=== PATIENT | female | born 1955 | race Caucasian/White ===

== ENCOUNTER → 2017-07-18 | Outpatient (CLI) | payer MEDICARE, MEDICAID ==
[~2017-07-18] MED LIST: ALBU8.5H2 IH; ASPI-266 PO; ATOR40TA70 PO; DCS100C PO; FLUT1DIS3 IH; HYDR-34 PO; IBP600T1 PO; LANS30CA PO; LEVO137T17 PO; MMT17NA NSEACH; MONT10TA21 PO; NF-ESOM40C PO; OLME1TAB3 PO; PIRO20CA2 PO; POTA10CA43 PO; [UNRECOGNIZED DRUG - CODE] PO
--- NOTE | 2017-07-18 15:32 | Diagnostic Imaging Report ---
PROCEDURE: MRI lumbar spine. TECHNIQUE: Multiplanar, multisequence MRI of the lumbar spine was performed without contrast. INDICATION: Back pain. History of previous back injury. COMPARISON: None. FINDINGS: For the purposes of this exam, last well-formed disc space is denoted the L5-S1 level. Evaluation static alignment demonstrates mild reverse S-shaped scoliotic deformity of the lower thoracic and lumbar spine. AP static alignment is maintained. There is no significant anterolisthesis or retrolisthesis. There is no evidence of jumped facets. Vertebral body heights are maintained. There is no evidence of acute fracture. Evaluation of marrow signal demonstrates Modic type I change of the adjacent endplates of the L2-L3 level on the right and at the L3-L4 and L4-L5 levels on the left. Otherwise, marrow signal is unremarkable. There is also multilevel intervertebral disc height loss, greatest at the L2-L3 through L4-L5 levels. Visualized portions of distal cord are unremarkable. Conus terminates at approximately the L1 level. No abnormal intrathecal filling defects are seen. Pre-and paravertebral soft tissue structures are unremarkable. Axial images demonstrate the following: L1-L2: There is no large disc bulge or focal protrusion. There is no significant spinal canal or neuroforaminal stenosis. L2-L3: There is posterior disc osteophyte complex formation, eccentric to the right. There is also bilateral ligament flavum laxity and facet arthropathy. As result, there is mild narrowing of the spinal canal and left neuroforamen. There is moderate narrowing on the right as well. L3-L4: There is slight posterior disc bulge and bilateral ligament flavum laxity and facet arthropathy. As a result, there is mild narrowing of spinal canal and bilateral neuroforamen. L4-L5: There is broad-based posterior disc bulge and bilateral ligament flavum laxity and facet arthropathy. As a result, there is minimal narrowing of spinal canal and bilateral neuroforamen. L5-S1: There is slight broad-based posterior disc bulge, eccentric to the right. There is also bilateral facet arthropathy. As a result, there is minimal narrowing of the right neuroforamen. Spinal canal and left neuroforamen are unremarkable. IMPRESSION: 1. Multilevel degenerative changes of the lumbar spine as described above. These changes appear greatest at L2-L3 level. 2. No acute fracture or dislocation of the lumbar spine. Dictated by: Dictated on workstation # [id number]
== END ==
LOC: RAD 13:54
PROVIDERS: ATTEND Nurse Practitioner Community Health
DX: M48.061 Spinal stenosis, lumbar region without neurogenic claudication (principal); M51.17 Intervertebral disc disorders with radiculopathy, lumbosacral region; M47.816 Spondylosis without myelopathy or radiculopathy, lumbar region; M46.87 Other specified inflammatory spondylopathies, lumbosacral region; M46.06 Spinal enthesopathy, lumbar region; Z87.828 Personal history of other (healed) physical injury and trauma
CPT/HCPCS: 72148

== ENCOUNTER → 2019-02-18 | Outpatient (CLI) | payer MEDICARE, MEDICAID ==
--- NOTE | 2019-02-18 12:56 | Diagnostic Imaging Report ---
PROCEDURE: CT neck soft tissue without contrast. TECHNIQUE: Multiple contiguous axial images were obtained through the neck without the use of intravenous contrast. Auto Exposure Controls were utilized during the CT exam to meet ALARA standards for radiation dose reduction. INDICATION: Palpable mass on right side of neck. COMPARISON: None. FINDINGS: There is a mass measuring 2.6 x 1.9 x 2.1 cm (LR x AP x SI) along the posterior margin of the right sternocleidomastoid muscle and involving the dermis in the mid neck, approximately at the level of C4 and C5. This mass appears to be fairly low in attenuation compared to adjacent muscular density and has mild adjacent fat stranding. No other mass is identified in the neck. No cervical lymphadenopathy. The pharyngeal and laryngeal soft tissues are symmetric bilaterally. The floor of the mouth, tongue base, and epiglottis are negative. The lung apices are clear. The visualized skull base, mastoids, and paranasal sinuses are negative. Normal alignment of the temporomandibular joints. Moderate spondylotic changes in the cervical spine are greatest at C5-C7. IMPRESSION: Indeterminate mass in the neck measuring up to 2.6 cm involving the dermis appears to be low in attenuation compared to the adjacent musculature. Primary diagnostic consideration would include an epidermoid cyst. Further investigation with ultrasound may be helpful to evaluate if this mass is in fact cystic. No lymphadenopathy or other mass is identified in the neck. Dictated by: Dictated on workstation # [id number]
== END ==
LOC: RAD 11:27
PROVIDERS: ATTEND Surgery
DX: L72.0 Epidermal cyst (principal); R22.1 Localized swelling, mass and lump, neck
CPT/HCPCS: 70490

== ENCOUNTER 2019-02-21 01:13 | Emergency (ER) | payer MEDICARE, MEDICAID ==
[~2019-02-21] VITALS: Ht 152.4 cm; Wt 109.1 kg
--- NOTE | 2019-02-21 01:46 | ED Integumentary General ---
General Chief Complaint: Skin/Wound Problems Stated Complaint: NECK ABSCESS Nursing Triage Note: pt with right lateral neck abscess, had ct 3 days ago, abscess opened tonight and started draining yellowish drainage Source: patient History of Present Illness Date Seen by Provider: Feb 21, 2019 Time Seen by Provider: 01:16 Initial Comments 63-year-old female presenting with complaints of drainage from right neck mass. She has been seen in the clinic as well as Dr. Madrid about this. She had a CT scan of her neck done 2 days ago and is to see the surgeon on Friday about it. Tonight she was sleeping and when she rolled over in bed she had a lot of drainage from the wound. She has had soreness and pain in that area as well. Because of the drainage her daughter suggests that she come into the emergency department to be evaluated. She hasn't been on Bactrim but it was too strong and made her have lightheadedness and dizziness. She had been taking some clindamycin prior to that and was tolerating it okay. She has not been on any antibiotics since seeing Dr. Madrid recently. She denies any fever or chills. She also has asthma and has been coughing more recently. Allergies and Home Medications Allergies Coded Allergies: Penicillins (Unverified Allergy, Unknown, RASH, 10/06/14) carbamazepine (Unverified Allergy, Unknown, RASH, 10/06/14) gabapentin (Unverified Allergy, Unknown, RASH, 10/06/14) tuberculin,purif.prot.deriv. (Unverified Allergy, Unknown, RASH, 10/06/14) Home Medications Albuterol 8.5 Gm Hfa.aer.ad, 1-2 PUFF IH RTQ4HR PRN for WHEEZING, (Reported) PRN WHEEZING Aspirin 81 Mg Tablet., 81 MG PO DAILY, (Reported) Atorvastatin Calcium 40 Mg Tablet, 40 MG PO DAILY, (Reported) Docusate Sodium 100 Mg Cap, 0 MG PO DAILY Prescribed by: ALEX HORN on 10/14/14 0928 Esomeprazole Mag Trihydrate 40 Mg Capsule., 40 MG PO DAILY, (Reported) Fluticasone/Salmeterol 1 Each Disk.w.dev, 1 PUFF IH BID, (Reported) Hydrocodone Bit/Acetaminophen 1 Ea Tablet, 1-2 EA PO Q4H PRN for PAIN Prescribed by: ALEX HORN on 10/14/14927 Ibuprofen 600 Mg Tab, 600 MG PO Q6H Prescribed by: ALEX HORN on 10/14/14927 Levothyroxine Sodium 137 Mcg Tablet, 137 MCG PO DAILY, (Reported) Mometasone Furoate 17 Gm Naspr, 1 SPRAY NSEACH DAILY, (Reported) Montelukast Sodium 10 Mg Tablet, 10 MG PO DAILY, (Reported) Olmesartan/Hydrochlorothiazide 1 Each Tablet, 1 EACH PO DAILY, (Reported) Piroxicam 20 Mg Capsule, 20 MG PO DAILY, (Reported) Potassium Chloride 10 Meq Capsule.sa, 10 MEQ PO DAILY WITH FOOD, (Reported) Patient Home Medication List Home Medication List Reviewed: Yes Review of Systems Review of Systems Constitutional: No chills, No fever EENTM: no symptoms reported Respiratory: cough, wheezing Cardiovascular: no symptoms reported Gastrointestinal: no symptoms reported Genitourinary: no symptoms reported Musculoskeletal: muscle pain (along the right side of her neck where she has the abscess/lesion) Skin: see HPI, lesions (abscess or lesion on the right side of her neck that pop tonight and had purulent drainage from it) Endocrine: No Symptoms Reported Past Urrfcja-Uxujmb-Yakkbs Hx Past Med/Social Hx: Reviewed Nursing Past Med/Soc Hx Patient Social History Alcohol Use: Denies Use Recreational Drug Use: No Smoking Status: Never a Smoker 2nd Hand Smoke Exposure: No Recent Foreign Travel: No Contact w/Someone Who Travel: No Recent Infectious Disease Expo: No Recent Hopitalizations: No Physical Abuse: No Sexual Abuse: No Mistreated: No Fear: No Immunizations Up To Date Date of Pneumonia Vaccine: Oct 13, 2012 Seasonal Allergies Seasonal Allergies: No Past Medical History Surgeries: Yes (RIGHT RCR, RIGHT BREAST BX, ESWL) Respiratory: Yes Asthma Cardiac: Yes Hypertension Neurological: No Kidney Stones Gastrointestinal: Yes Gastroesophageal Reflux, Ulcer Musculoskeletal: Yes Arthritis Endocrine: Yes Hypothyroidsim Cancer: No Psychosocial: Yes Anxiety Integumentary: Yes Eczema Blood Disorders: No Family Medical History Alcoholism 19 FATHER Arthritis G8 SISTER Asthma G8 BROTHER Cardiovascular disease 19 FATHER G8 SISTER Colon cancer 19 MOTHER (LIVER) Drug abuse G8 BROTHER No Family History of: AIDS Alzheimer's disease Cancer of mouth Cataracts Completed stroke Dementia Diabetes mellitus Headache disorder Hypertension Kidney disease Myocardial infarction Parkinson's disease Psychosocial problem Respiratory disorder Seizure disorder Severe allergy Thyroid disease Tuberculosis Physical Exam Vital Signs Vital Signs - First Documented 02/21/19 01:34 Temp 36.4 Pulse 78 Resp 18 B/P (MAP) 148/85 (106) Pulse Ox 95 O2 Delivery Room Air Capillary Refill : Less Than 3 Seconds General Appearance: WD/WN, no apparent distress Neck: full range of motion, supple, other (tenderness around the right side of her neck where she has a erythematous papule that has purulent drainage coming from it) Cardiovascular: normal peripheral pulses, regular rate, rhythm Respiratory: chest non-tender, lungs clear, normal breath sounds; No wheezing Skin: warm/dry, other (erythematous tender papule on the right side of her neck with purulent drainage and a 4 mm open area that purulent drainage is coming from) Progress/Results/Core Measures Results/Orders My Orders Orders - GIOVANNA ROSAS MD Wound Culture (02/21/19 01:39) Wound Dressing-Ed (02/21/19 01:39) Vital Signs/I&O 02/21/19 02/21/19 01:34 01:50 Temp 36.4 36.4 Pulse 78 78 Resp 18 18 B/P (MAP) 148/85 (106) 148/85 (106) Pulse Ox 95 95 O2 Delivery Room Air Blood Pressure Mean: 106 POS Progress Progress Note : Progress Note Obtain culture of the purulent drainage from the papule/lesion and abscessed area of the right side of the neck. Will place a dressing on it so that it doesn't continue to drain over her clothing. He expressed a moderate amount of purulent drainage from the lesion and patient states it feels better now. Counseled to keep appointment on Friday with Dr. Madrid. Will prescribe more of the clindamycin in case the sensitivity shows that she could continue this. She does have at least a couple of days of antibiotic left with her. Departure Impression Primary Impression: Cellulitis and abscess of neck Disposition: HOME, SELF-CARE Condition: Stable Departure-Patient Inst. Decision time for Depature: 01:45 Referrals: [facility] (PCP) Primary Care Physician COTY OCHOA (Family) Primary Care Physician VERITO MADRID DO Patient Instructions: ABSCESS Add. Discharge Instructions: Obtain CT scan showed that the fluid collection extending down around the sternocleidomastoid muscle on the right side. Since that is draining now and there is a culture pending check with Dr. Madrid on Friday when he wants to manage this. For now on Friday start the clindamycin until the culture results come back to see what antibiotic would be best to continue. Since the Bactrim, which is the sulfa antibiotic that was prescribed for you was too strong for you, make sure Dr. Madrid knows about this so that he does not prescribe that again for you. All discharge instructions reviewed with patient and/or family. Voiced understanding. Images Head/Face 1 - Lesion (s) (1.8 cm diameter erythematous raised tender papule with purulent drainage) GIOVANNA ROSAS MD Feb 21, 2019 01:46 POS
[2019-02-21 01:50] VITALS: BP 148/85
== END 2019-02-21 01:50 | disposition home or self-care (01) ==
LOC: EDUNIT# 01:13 → ER FS 01:14
DX: L03.221 Cellulitis of neck (principal); L02.11 Cutaneous abscess of neck; J45.909 Unspecified asthma, uncomplicated; I10 Essential (primary) hypertension; K21.9 Gastro-esophageal reflux disease without esophagitis; F41.9 Anxiety disorder, unspecified; E03.9 Hypothyroidism, unspecified; Z87.442 Personal history of urinary calculi; Z88.0 Allergy status to penicillin; Z88.8 Allergy status to other drugs, medicaments and biological substances; Z79.82 Long term (current) use of aspirin; Z79.51 Long term (current) use of inhaled steroids; Z80.0 Family history of malignant neoplasm of digestive organs; Z82.49 Family history of ischemic heart disease and other diseases of the circulatory system
CPT/HCPCS: 87070; 87205; 99282

== ENCOUNTER → 2019-02-23 | Outpatient (CLI) | payer MEDICARE, MEDICAID ==
--- NOTE | 2019-02-23 17:31 | Diagnostic Imaging Report ---
INDICATION: Palpable lump in the right neck. Sonographic interrogation of the area of lump in the right neck was performed. Correlation is made with CT neck study from 02/18/2019. There is a hypoechoic somewhat complex appearing mass at the area of interest in the right neck measuring 1.3 x 1.1 x 2.0 cm. This is just below the skin surface and likely accounts for the density noted on CT. No significant internal vascularity is seen. IMPRESSION: Complex cystic mass in the area of palpable abnormality in the right neck and correlating with CT abnormality. Dictated by: Dictated on workstation # [id number]
== END ==
LOC: RAD 13:48
PROVIDERS: ATTEND Surgery
DX: R22.1 Localized swelling, mass and lump, neck (principal)
CPT/HCPCS: 76536

== ENCOUNTER 2019-03-30 05:39 | Outpatient (CLI) | payer MEDICARE, MEDICAID ==
[~2019-03-30] VITALS: Ht 152.4 cm; Wt 107.7 kg
[2019-03-30] MEDS ORDERED: ESOM40CA52 PO (10:54)
[2019-03-30] MEDS ORDERED: FLUT1DIS26 IH (10:54)
[2019-03-30] MEDS ORDERED: ALBU18HF2 IH (10:54)
[2019-03-30] MEDS ORDERED: ATOR40TA70 PO (10:54)
[2019-03-30] MEDS ORDERED: LEVO125T6 PO (10:54)
[2019-03-30] MEDS ORDERED: OLME1TAB42 PO (10:54)
[2019-04-01] MEDS ORDERED: ACHD5005 PO (11:24)
== END 2019-03-30 11:01 | disposition home or self-care (01) ==
LOC: PREOP 05:39
PROVIDERS: ATTEND Surgery
DX: Z01.818 Encounter for other preprocedural examination (principal)

== ENCOUNTER 2020-09-15 02:32 | Emergency (ER) | payer OTHER, MEDICAID ==
[~2020-09-15] VITALS: Ht 154.9 cm; Wt 113.4 kg
[~2020-09-15 02:32] MED LIST changes: +ACHD5005 PO; +ALBU18HF2 IH; +ESOM40CA52 PO; +FLUT1DIS26 IH; +LEVO125T6 PO; +OLME-9 PO
--- NOTE | 2020-09-15 02:44 | ED Cardiac General ---
History of Present Illness General Chief Complaint: Cardiac/General Problems Stated Complaint: HEART FLUTTERING History of Present Illness Date Seen by Provider: Sep 15, 2020 Time Seen by Provider: 02:43 Initial Comments 65-year-old female presents with feeling of "fluttering in her chest" for the past few hours since waking up to use the restroom at 1 AM. Some associated mild shortness of air, denies chest pain, swelling of extremities or rapid heart rate. Denies previous occurrence of similar feeling, denies Hx of any heart problems. Allergies and Home Medications Allergies Coded Allergies: Penicillins (Verified Allergy, Unknown, 09/15/20) carbamazepine (Verified Allergy, Unknown, 09/15/20) gabapentin (Verified Allergy, Unknown, 09/15/20) Home Medications Diltiazem HCl 60 Mg Cap.er.12h, 60 MG PO BID Prescribed by: HECTOR PENG on 09/15/20 0304 Rivaroxaban 1 Each Tab.ds.pk, 1 EACH PO UD 15mg by mouth twice daily x 21 days then 20mg by mouth daily Prescribed by: HECTOR PENG on 09/15/20 0309 Patient Home Medication List Home Medication List Reviewed: Yes Review of Systems Review of Systems Constitutional: No chills, No fever, No malaise, No weakness Respiratory: Denies Cough, Denies Shortness of Air Cardiovascular: Denies Chest Pain, Denies Edema, Denies Irregular Heart Rate, Denies Lightheadedness; Palpitations; Denies Syncope Gastrointestinal: Denies Abdominal Pain, Denies Diarrhea, Denies Nausea, Denies Vomiting Genitourinary: No Symptoms Reported Musculoskeletal: no symptoms reported Skin: no symptoms reported Psychiatric/Neurological: Anxiety; Denies Depressed, Denies Emotional Problems, Denies Headache, Denies Numbness, Denies Paresthesia Past Gzwsscd-Cjoejh-Vlxaca Hx Past Med/Social Hx: Reviewed Nursing Past Med/Soc Hx Physical Exam Vital Signs Vital Signs - First Documented 09/15/20 09/15/20 02:44 03:35 Temp 35.3 Pulse 100 Resp 21 B/P (MAP) 121/98 (106) Pulse Ox 95 O2 Delivery Room Air Capillary Refill : Height, Weight, BMI Height: '" Weight: lbs. oz. kg; BMI Method: General Appearance: No Apparent Distress, WD/WN, Anxious HEENT: PERRL/EOMI, Normal ENT Inspection Neck: Full Range of Motion, Non Tender, Supple Respiratory: Chest Non Tender, Lungs Clear, Normal Breath Sounds, No Accessory Muscle Use, No Respiratory Distress Cardiovascular: No Edema, No JVD, Irregularly Irregular; No Tachycardia Gastrointestinal: No Organomegaly, Non Tender, Soft Extremity: Normal Capillary Refill, Normal Inspection, Non Tender Neurologic/Psychiatric: Alert, Oriented x3, No Motor/Sensory Deficits, Normal Mood/Affect Skin: Normal Color, Warm/Dry Progress/Results/Core Measures Results/Orders Lab Results Laboratory Tests Test 09/15/20 02:49 Range/Units White Blood Count 5.2 4.3-11.0 10^3/uL Red Blood Count 4.04 L 4.35-5.85 10^6/uL Hemoglobin 11.4 L 11.5-16.0 G/DL Hematocrit 35 35-52 % Mean Corpuscular Volume 87 80-99 FL Mean Corpuscular Hemoglobin 28 25-34 PG Mean Corpuscular Hemoglobin Concent 33 32-36 G/DL Red Cell Distribution Width 13.8 10.0-14.5 % Platelet Count 236 130-400 10^3/uL Mean Platelet Volume 9.3 7.4-10.4 FL Immature Granulocyte % (Auto) 0 % Neutrophils (%) (Auto) 59 42-75 % Lymphocytes (%) (Auto) 26 12-44 % Monocytes (%) (Auto) 12 0-12 % Eosinophils (%) (Auto) 1 0-10 % Basophils (%) (Auto) 1 0-10 % Neutrophils # (Auto) 3.1 1.8-7.8 X 10^3 Lymphocytes # (Auto) 1.4 1.0-4.0 X 10^3 Monocytes # (Auto) 0.6 0.0-1.0 X 10^3 Eosinophils # (Auto) 0.1 0.0-0.3 10^3/uL Basophils # (Auto) 0.1 0.0-0.1 10^3/uL Immature Granulocyte # (Auto) 0.0 0.0-0.1 10^3/uL Sodium Level 136 135-145 MMOL/L Potassium Level 4.0 3.6-5.0 MMOL/L Chloride Level 100 98-107 MMOL/L Carbon Dioxide Level 25 21-32 MMOL/L Anion Gap 11 5-14 MMOL/L Blood Urea Nitrogen 28 H 7-18 MG/DL Creatinine 0.81 0.60-1.30 MG/DL Estimat Glomerular Filtration Rate > 60 BUN/Creatinine Ratio 35 Glucose Level 92 70-105 MG/DL Calcium Level 10.1 8.5-10.1 MG/DL Corrected Calcium 9.8 8.5-10.1 MG/DL Total Bilirubin 0.3 0.1-1.0 MG/DL Aspartate Amino Transf (AST/SGOT) 21 5-34 U/L Alanine Aminotransferase (ALT/SGPT) 24 0-55 U/L Alkaline Phosphatase 113 40-136 U/L Total Protein 7.3 6.4-8.2 GM/DL Albumin 4.4 3.2-4.5 GM/DL My Orders Orders - HECTOR PENG DO Cbc With Automated Diff (09/15/20 02:44) Comprehensive Metabolic Panel (09/15/20 02:44) Diltiazem Cd 24 Hr Capsule (Cardizem Cd (09/15/20 09:00) Vital Signs/I&O 09/15/20 09/15/20 02:44 03:35 Temp 35.3 Pulse 100 88 Resp 21 B/P (MAP) 121/98 (106) 139/87 Pulse Ox 95 O2 Delivery Room Air Room Air Progress Progress Note : Progress Note patient w minimal symptoms of (self) rate control new onset a. fib. Discussed medications and need to follow up with Cardio / PCP. She agrees and understand s. Questions answered Initial ECG Impression Date: Sep 15, 2020 Initial ECG Impression Time: 02:42 Initial ECG Rate: 105 Initial ECG Rhythm: A Fib/Flutter Initial ECG Intervals: Normal Initial ECG Impression: Atrial Fibrillation Initial ECG Comparisson: No Previous ECG Available Departure Impression Primary Impression: Atrial fibrillation Qualified Codes: I48.0 - Paroxysmal atrial fibrillation Disposition: 01 HOME, SELF-CARE Condition: Stable Departure-Patient Inst. Decision time for Depature: 03:00 Referrals: NO,LOCAL PHYSICIAN (PCP) Primary Care Physician COLT ELLIS JR, MD Patient Instructions: Atrial Fibrillation (DC) Add. Discharge Instructions: Call Dr Ellis office to set up a follow up appointment regarding your new onset "A. fib". Take your medication as instructed. REturn to the [facility] ER if you have a rapid heart rate that doesn't slow down. All discharge instructions reviewed with patient and/or family. Voiced understanding. Scripts Rivaroxaban (Xarelto Starter Pack) 1 Each Tab.ds.pk 1 EACH PO UD, #51 PKG 15mg by mouth twice daily x 21 days then 20mg by mouth daily Prov: HECTOR PENG DO 09/15/20 Diltiazem HCl (Diltiazem 12Hr ER) 60 Mg Cap.er.12h 60 MG PO BID, #60 CAP Prov: HECTOR PENG DO 09/15/20 HECTOR PENG DO Sep 15, 2020 02:44
[2020-09-15] MEDS ORDERED: dilTIAZem120 MG (CARDIZEM CD) CAP PO ONE (02:58)
[2020-09-15] MEDS ORDERED: DILT60CA PO (03:04)
[2020-09-15] MEDS ORDERED: RIVA1TAB PO (03:09)
[2020-09-15 03:12] LABS: BASOPHILS % (AUTO) 1 % (0-10); EOSINOPHILS % (AUTO) 1 % (0-10); HEMATOCRIT 35 % (35-52); HEMOGLOBIN 11.4 G/DL (11.5-16.0); LYMPHOCYTES # (AUTO) 1.4 X 10^3 (1.0-4.0); LYMPHOCYTES % (AUTO) 26 % (12-44); MEAN CORPUSCULAR HEMOGLOBIN 28 PG (25-34); MEAN CORPUSCULAR HGB CONC 33 G/DL (32-36); MEAN CORPUSCULAR VOLUME 87 FL (80-99); MEAN PLATELET VOLUME 9.3 FL (7.4-10.4); MONOCYTES # (AUTO) 0.6 X 10^3 (0.0-1.0); MONOCYTES % (AUTO) 12 % (0-12); NEUTROPHILS # (AUTO) 3.1 X 10^3 (1.8-7.8); NEUTROPHILS % (AUTO) 59 % (42-75); PLATELET COUNT 236 10^3/uL (130-400); WHITE BLOOD COUNT 5.2 10^3/uL (4.3-11.0)
[2020-09-15 03:13] LABS: BASOPHILS # (AUTO) 0.1 10^3/uL (0.0-0.1); EOSINOPHILS # (AUTO) 0.1 10^3/uL (0.0-0.3)
[2020-09-15 03:28] LABS: ALANINE AMINOTRANSFERASE 24 U/L (0-55); ALBUMIN 4.4 GM/DL (3.2-4.5); ALKALINE PHOSPHATASE 113 U/L (40-136); BILIRUBIN,TOTAL 0.3 MG/DL (0.1-1.0); BUN/CREATININE RATIO 35; CALCIUM 10.1 MG/DL (8.5-10.1); CARBON DIOXIDE 25 MMOL/L (21-32); CHLORIDE 100 MMOL/L (98-107); CREATININE SERUM 0.81 MG/DL (0.60-1.30); GFR ESTIMATED > 60; GLUCOSE 92 MG/DL (70-105); SODIUM 136 MMOL/L (135-145); TOTAL PROTEIN 7.3 GM/DL (6.4-8.2)
[2020-09-15 03:35] VITALS: BP 139/87
[2020-09-15] MEDS ORDERED: dilTIAZem120 MG (CARDIZEM CD) CAP PO SCH (09:00)
== END 2020-09-15 03:35 | disposition home or self-care (01) ==
LOC: MERGE 02:37 → ER FS 02:37
DX: I48.91 Unspecified atrial fibrillation (principal); Z79.01 Long term (current) use of anticoagulants
CPT/HCPCS: 36415; 80053; 85025; 93005

== ENCOUNTER → 2020-09-27 | Outpatient (CLI) | payer MEDICARE, MEDICAID ==
[~2020-09-27] MED LIST changes: +DILT60CA PO; +RIVA1TAB PO
== END ==
LOC: CARD 10:00
PROVIDERS: ATTEND Internal Medicine Cardiovascular Disease
DX: I48.0 Paroxysmal atrial fibrillation (principal); I51.7 Cardiomegaly; I34.0 Nonrheumatic mitral (valve) insufficiency
CPT/HCPCS: 93306

== ENCOUNTER → 2020-09-28 | Outpatient (CLI) | payer MEDICARE, MEDICAID ==
[~2020-09-28] MED LIST changes: +CATHETER FLUSH 10 ML SYR IV PRN; +REGADENOSON 0.4 MG/5 ML SYR (LEXISCAN) IV ONE
[2020-09-28 09:20] VITALS: BP 128/77
--- NOTE | 2020-10-02 16:22 | Cardiology Stress Test Report ---
Stress Test Report Date of Procedure/Referring: PCP Ted Ellis Jr, MD Admitting Physician [facility] Indications: Paroxysmal atrial fibrillation. Baseline Heart Rate: 51 Baseline Blood Pressure: Blood Pressure Systolic: 128 Blood Pressure Diastolic: 77 Baseline Vitals Vital Signs Date Time Temp Pulse Resp B/P (MAP) Pulse Ox O2 Delivery O2 Flow Rate FiO2 09/28/20 09:20 54 18 128/77 (94) 99 Room Air Baseline EKG: Baseline EKG: Sinus bradycardia at 51 bpm with sinus arrhythmia. Summary After explaining the procedure to the patient, she signed a consent and then brought to the stress nuclear laboratory. STRESS TEST PROCEDURE: The patient was administered 0.4 mg of intravenous regadenoson. Following a short wait, the stress dose of nuclear isotope was administered. The resting heart rate was 51 bpm and the peak heart rate was 100 bpm. The resting blood pressure was 128/77 mmHg and the minimum blood pressure was 111/71 mmHg. This represents normal heart rate and blood pressure response to Lexiscan. The test was stopped due to the protocol. There was no stress-induced chest discomfort, arrhythmias, or electrocardiogram changes. NUCLEAR PROCEDURE: The patient was administered 10.28 mCi of intravenous technetium 99m tetrofosmin for the rest images. Following the administration of the regadenoson, the patient was administered 32.1 mCi of intravenous technetium 99m tetrofosmin for the stress images. Following a short wait after each injection, imaging was obtained. The images were subsequently processed and reformatted in the usual views. Gated imaging was obtained. There was a significant amount of breast attenuation artifact noted. The majority of this corrected with attenuation correction. NUCLEAR RESULTS There was normal myocardial perfusion in all segments, other than breast attenuation artifact, without evidence of infarction or ischemia. There was normal left ventricular chamber size with an end-diastolic volume of 97 mL and an end-systolic volume of 43 mL. There was no evidence of transit ischemic dilatation. The TID ratio was 1.09. There was normal wall motion in all segments with a calculated ejection fraction of 56%. TID: 1.09 1. Normal heart rate and blood pressure response to regadenoson. 2. There was no chest discomfort, arrhythmias, or electrocardiogram changes during the test. 3. There was normal myocardial perfusion in all segments, other than breast attenuation artifact, without evidence of infarction or ischemia. 4. There was normal wall motion in all segments with a calculated ejection fraction of 56%. TED ELLIS JR, MD Oct 02, 2020 16:22
== END ==
LOC: CARD 07:54
PROVIDERS: ATTEND Internal Medicine Cardiovascular Disease
DX: I48.0 Paroxysmal atrial fibrillation (principal)
CPT/HCPCS: 78452; 93017

== ENCOUNTER 2021-02-14 11:54 | Emergency (ER) | payer MEDICARE, MEDICAID ==
[~2021-02-14] VITALS: Ht 154.9 cm; Wt 109.8 kg
[~2021-02-14 11:54] MED LIST changes: -CATHETER FLUSH 10 ML SYR IV PRN; -REGADENOSON 0.4 MG/5 ML SYR (LEXISCAN) IV ONE
[2021-02-14 12:04] VITALS: BP 157/79
[2021-02-14] MEDS ORDERED: ACETAMINOPHEN 500 MG TAB (TYLENOL) PO ONE (12:15)
--- NOTE | 2021-02-14 12:15 | ED Lower Extremity ---
General Chief Complaint: Lower Extremity Stated Complaint: LT CALF PAIN Source: patient Exam Limitations: no limitations History of Present Illness Date Seen by Provider: Feb 14, 2021 Time Seen by Provider: 11:57 Initial Comments 65-year-old female with past medical history of A. fib on Eliquis, hypertension, hyperlipidemia coming in due to left calf pain. She says she was getting up from a chair last when she thinks that is when she first felt it. Now it's been worsening, severe, sharp, worse with movement, better with rest. Took ibuprofen at 8 AM this morning which took the edge off. Denies any previous history of DVT or PE. Has not missed any doses of her Eliquis. Did not fall or have any trauma. Denies any obvious swelling or redness to her extremity that she knows of. Otherwise is denying any other acute complaints including chest pain, shortness of breath, abdominal pain, nausea, vomiting, diarrhea, fever, chills, weakness, numbness, or any other concerns Allergies and Home Medications Allergies Coded Allergies: Penicillins (Unverified Allergy, Unknown, RASH, 10/06/14) carbamazepine (Unverified Allergy, Unknown, RASH, 10/06/14) gabapentin (Unverified Allergy, Unknown, RASH, 10/06/14) tuberculin, purified protein deriva (Unverified Allergy, Unknown, RASH, 10/06/14) Patient Home Medication List Home Medication List Reviewed: Yes Albuterol Sulfate (Ventolin Hfa) 18 Gm Hfa.aer.ad, 2 PUFF IH Q4H PRN for WHEEZING, (Reported) Entered as Reported by: JAKY MARRERO on 03/30/19 1054 Atorvastatin Calcium (Atorvastatin Calcium) 40 Mg Tablet, 40 MG PO DAILY, (Reported) Entered as Reported by: JAKY MARRERO on 03/30/19 1054 Diltiazem HCl (Diltiazem 12Hr ER) 60 Mg Cap.er.12h, 60 MG PO BID Prescribed by: HECTOR PENG on 09/15/20 0304 Esomeprazole Magnesium (Esomeprazole Magnesium) 40 Mg Capsule.dr, 40 MG PO DAILY, (Reported) Entered as Reported by: JAKY MARRERO on 03/30/19 1054 Fluticasone/Salmeterol (Advair 250-50 Diskus) 1 Each Blst.w.dev, 1 PUFF IH BID, (Reported) Entered as Reported by: JAKY MARRERO on 03/30/19 1054 Hydrocodone Bit/Acetaminophen (Lortab 5 Mg Tablet) 1 Tab Tab, 1 TAB PO Q4-6HR Prescribed by: VERITO MADRID on 04/01/19 1124 Levothyroxine Sodium (Levothyroxine Sodium) 125 Mcg Tablet, 125 MCG PO DAILY, (Reported) Entered as Reported by: JAKY MARRERO on 03/30/19 1054 Olmesartan/Hydrochlorothiazide (Olmesartan-Hctz 40-12.5 mg Tab) 1 Each Tablet, 1 TAB PO DAILY, (Reported) Entered as Reported by: JAKY MARRERO on 03/30/19 1054 Rivaroxaban (Xarelto Starter Pack) 1 Each Tab.ds.pk, 1 EACH PO UD Prescribed by: HECTOR PENG on 09/15/20 0309 Review of Systems Constitutional: No chills, No fever EENTM: No blurred vision Respiratory: No cough, No short of breath Cardiovascular: No chest pain Gastrointestinal: No abdominal pain Genitourinary: no symptoms reported Musculoskeletal: muscle pain Skin: no symptoms reported Psychiatric/Neurological: No Symptoms Reported All Other Systems Reviewed Negative Unless Noted: Yes Past Mwjzawv-Woqzox-Jcchkf Hx Patient Social History Substance use?: No Seasonal Allergies Seasonal Allergies: No Past Medical History Surgeries: Yes (RIGHT RCR, RIGHT BREAST BX, ESWL, bilat CTR, bilat TKR, ) Bladder Surgery, Gallbladder, Hysterectomy Respiratory: Yes Asthma Cardiac: Yes Hypertension 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 Genitourinary: Yes Kidney Stones Gastrointestinal: Yes Gastroesophageal Reflux, Ulcer Musculoskeletal: Yes Arthritis Endocrine: Yes Hypothyroidsim HEENT: No Cancer: No Psychosocial: Yes Anxiety Integumentary: Yes Eczema Blood Disorders: No Family Medical History Alcoholism 19 FATHER Arthritis G8 SISTER Asthma G8 BROTHER Cardiovascular disease 19 FATHER G8 SISTER Colon cancer 19 MOTHER (LIVER) Drug abuse G8 BROTHER No Family History of: AIDS Alzheimer's disease Cancer of mouth Cataracts Completed stroke Dementia Diabetes mellitus Headache disorder Hypertension Kidney disease Myocardial infarction Parkinson's disease Psychosocial problem Respiratory disorder Seizure disorder Severe allergy Thyroid disease Tuberculosis Physical Exam Vital Signs Vital Signs - First Documented 02/14/21 12:04 Temp 36.3 Pulse 69 Resp 20 B/P (MAP) 157/79 (105) Pulse Ox 96 O2 Delivery Room Air Capillary Refill : Height, Weight, BMI Height: 5'2.50" Weight: 200lbs. oz. [id number]; 46.37 BMI Method: General Appearance: WD/WN, no apparent distress HEENT: PERRL/EOMI, normal ENT inspection, pharynx normal Neck: non-tender, full range of motion, supple, normal inspection Cardiovascular: regular rate, rhythm, no edema, no murmur Respiratory: chest non-tender, lungs clear, normal breath sounds, no respiratory distress, no accessory muscle use Gastrointestinal: normal bowel sounds, non tender, soft; No distended, No guarding Hips: bilateral hip non-tender, bilateral hip normal inspection, bilateral hip normal range of motion, bilateral hip no evidence of injury Legs: bilateral leg non-tender, bilateral leg normal inspection, bilateral leg normal range of motion, bilateral leg no evidence of injury Knees: bilateral knee non-tender, bilateral knee normal inspection, bilateral knee normal range of motion, bilateral knee no evidence of injury, bilateral knee other (left calf pain with palpation, appears similar size to opposite side without obvious erythema) Ankles: bilateral ankle non-tender, bilateral ankle normal inspection, bilateral ankle normal range of motion, bilateral ankle no evidence of injury Feet: bilateral foot non-tender, bilateral foot normal inspection, bilateral foot normal range of motion, bilateral foot no evidence of injury Neurologic/Tendon: normal sensation, normal motor functions Neurologic/Psychiatric: no motor/sensory deficits, alert, normal mood/affect Skin: normal color, warm/dry Lymphatic: no adenopathy Progress/Results/Core Measures Results/Orders My Orders Orders - ELIZ COCHRAN MD Acetaminophen Tablet (Tylenol Tablet) (02/14/21 12:15) Us Venous Lower Ext Lt (02/14/21 12:10) Medications Given in ED Current Medications Medications Dose Ordered Sig/Yimi Route Start Time Stop Time Status Last Admin Dose Admin Acetaminophen 1,000 mg ONCE ONCE PO 02/14/21 12:15 02/14/21 12:16 DC 02/14/21 12:17 1,000 MG Vital Signs/I&O 02/14/21 12:04 Temp 36.3 Pulse 69 Resp 20 B/P (MAP) 157/79 (105) Pulse Ox 96 O2 Delivery Room Air Progress Progress Note : Progress Note 65-year-old female with above history, and due to left calf pain. ABCs were intact and vitals were stable on presentation. Physical exam with her lower extremities appear equal and only positive finding is pain with palpation of her calf. No clinical signs of DVT otherwise including no obvious swelling or redness compared to the other side. She has not had any trauma and no concerns for fracture at this time. Given that she is on Eliquis and no prior history of clots I think it would be very unlikely, however it would be a 1 significant thing I would want to rule out. We were able to order an ultrasound to be completed by [facility] here in the building. She was given Tylenol for pain control. Other possibilities are a muscle strain versus Bass's cyst rupture versus some other etiology. Ultrasound was positive for Bass's cyst and negative for any other acute findings including DVT. This is consistent with her exam. I believe she is stable for discharge. She was sent home with strict return precautions. Departure Impression Primary Impression: Pain of left calf Additional Impression: Bass's cyst, ruptured Disposition: HOME, SELF-CARE Condition: Stable Departure-Patient Inst. Decision time for Depature: 12:37 Referrals: THANIA TILLEY MD (PCP/Family) Primary Care Physician Patient Instructions: Bass's Cyst (DC) Add. Discharge Instructions: He did not have blood clot in your leg but you do have what appears to be a ruptured Bass's cyst. This is a fluid collection that collects in the back of the knee and when it ruptures can spread down your calf and cause pain. I recommend ice, ibuprofen, and Tylenol. If pain persist I would recommend following up with the orthopedic doctor that did your knee replacement as the fluid does come from the knee. If you have any redness, significant swelling in the leg, or any other concerns then please come back to the ER. ELIZ COCHRAN MD Feb 14, 2021 12:15
--- NOTE | 2021-02-14 13:06 | Diagnostic Imaging Report ---
EXAMINATION: US Lower Extremity Venous Duplex Left. TECHNIQUE: Multiple Real-time grayscale images were obtained over the left lower extremity in various projections. Additional spectral analysis and color Doppler duplex images were also obtained. HISTORY: Swelling. COMPARISON: None available. FINDINGS: The left common femoral, superficial femoral, popliteal, peroneal, posterior tibial, and greater saphenous veins demonstrate normal flow, augmentation, and compressibility. There is a popliteal fossa fluid collection which measures 10.1 x 1.7 x 2.8 cm. There is subcutaneous edema within the calf. IMPRESSION: 1. No DVT of the left lower extremity. 2. There is a 10.1 cm popliteal fossa fluid collection. Dictated by: Dictated on workstation # [id number]
== END 2021-02-14 12:45 | disposition home or self-care (01) ==
LOC: EDUNIT# 11:54 → ER FS 11:56
DX: M79.662 Pain in left lower leg (principal); M66.0 Rupture of popliteal cyst; J45.909 Unspecified asthma, uncomplicated; I10 Essential (primary) hypertension; K21.9 Gastro-esophageal reflux disease without esophagitis; E03.9 Hypothyroidism, unspecified; Z79.890 Hormone replacement therapy; Z79.01 Long term (current) use of anticoagulants; Z79.899 Other long term (current) drug therapy

== ENCOUNTER → 2021-02-23 | Outpatient (CLI) | payer MEDICARE, MEDICAID | LOC: ORTHO 10:37 | PROVIDERS: ATTEND Orthopaedic Surgery | DX: S36.39XA Other injury of stomach, initial encounter (principal); L03.116 Cellulitis of left lower limb; X58.XXXA Exposure to other specified factors, initial encounter | CPT/HCPCS: 99203 ==